=== PATIENT | female | born 1980 | race Native Hawaiian/Other Pacific Islander ===

== ENCOUNTER → 2016-04-21 | Outpatient (CLI) | payer MEDICAID, OTHER ==
--- NOTE | 2016-04-21 15:48 | WOMENS IMAGING REPORT ---
EXAM DESCRIPTION: BILAT DIAGNOSTIC MAMMO W/CAD; U/S BREAST UNILATERAL, COMPL COMPLETED DATE/TIME: 04/21/2016 12:15 pm; 04/21/2016 1:37 pm REASON FOR STUDY: N64.4 BILATERAL BREAST PAIN; LT BREAST PAIN,N64.4 N64.4 MASTODYNIA COMPARISON: Outside films are not available for comparison TECHNIQUE: Standard craniocaudal and mediolateral oblique views of each breast recorded using digita l acquisition. Additional left breast 90 mediolateral view. Because of a history of left breast pain, ultrasound w as also performed. LIMITATIONS: None. FINDINGS: RIGHT BREAST MASSES: No suspicious masses. CALCIFICATIONS: No new or suspicious calcifications. ARCHITECTURAL DISTORTION: None. DEVELOPING DENSITY: None. ASYMMETRY: None noted. OTHER: No other significant findings. LEFT BREAST MASSES: No suspicious masses. CALCIFICATIONS: No new or suspicious calcifications. ARCHITECTURAL DISTORTION: None. DEVELOPING DENSITY: None. ASYMMETRY: None noted. OTHER: There is an ultrasound biopsy clip in the left breast 5 cm from the nipple at the 3 o'clock po sition Read with the assistance of CAD: .[facility] - R2 Cenova Version 1.3 .[facility] Imaging - R2 Cenova Version 1.3 .[facility] Imaging - R2 Cenova Version 2.4 .[facility] - R2 Cenova Version 2.4 .[facility] - R2 Emissions Inspector Version 9.2 Left breast ultrasound: Patient gives a history diffuse left breast pain, more prominent laterally. Ultrasound of the entire left breast was performed. A 10 mm well-circumscribed hypoechoic solid nodule is present with biops y clip present, likely a benign fibroadenoma. No other nodules. No cysts. No worrisome acoustic ab sorption. BREAST DENSITY: d. The breasts are extremely dense, which lowers the sensitivity of mammography. BIRAD: 2 Benign findings. RECOMMENDATION: RECOMMENDED FOLLOW UP: Clinical followup for breast pain. Otherwise, consider bilateral screening tomosynthesis in April 2016 based on patient's individual l ifetime risk factor for breast cancer (Valerie model), or beginning at age 40 SPECIFIC INTERVENTION/IMAGING/CONSULTATION RECOMMENDED:No additional intervention/ imaging/consultati on needed at this time. COMMUNICATION:Patient notified by letter COMMENT: PATIENT NOTIFIED BY LETTER. The [employer] (ACR) has developed recommendations for screening MRI of the breast s in certain patient populations, to be used in conjunction with mammography. Breast MRI surveillanc e may be appropriate for women with more than 20% lifetime risk of developing breast cancer as deter mined by genetic testing, significant family history of the disease, or history of mantle radiation f or Hodgkins Disease. ACR Practice Guidelines 2008. TECHNICAL DOCUMENTATION: FINDING NUMBER: (1) ASSESSMENT: (1) JOB ID: [id number] [employer]- All Rights Reserved
--- NOTE | 2016-04-21 15:48 | WOMENS IMAGING REPORT ---
EXAM DESCRIPTION: BILAT DIAGNOSTIC MAMMO W/CAD; U/S BREAST UNILATERAL, COMPL COMPLETED DATE/TIME: 04/21/2016 12:15 pm; 04/21/2016 1:37 pm REASON FOR STUDY: N64.4 BILATERAL BREAST PAIN; LT BREAST PAIN,N64.4 N64.4 MASTODYNIA COMPARISON: Outside films are not available for comparison TECHNIQUE: Standard craniocaudal and mediolateral oblique views of each breast recorded using digita l acquisition. Additional left breast 90 mediolateral view. Because of a history of left breast pain, ultrasound w as also performed. LIMITATIONS: None. FINDINGS: RIGHT BREAST MASSES: No suspicious masses. CALCIFICATIONS: No new or suspicious calcifications. ARCHITECTURAL DISTORTION: None. DEVELOPING DENSITY: None. ASYMMETRY: None noted. OTHER: No other significant findings. LEFT BREAST MASSES: No suspicious masses. CALCIFICATIONS: No new or suspicious calcifications. ARCHITECTURAL DISTORTION: None. DEVELOPING DENSITY: None. ASYMMETRY: None noted. OTHER: There is an ultrasound biopsy clip in the left breast 5 cm from the nipple at the 3 o'clock po sition Read with the assistance of CAD: .[facility] - R2 Cenova Version 1.3 .[facility] Imaging - R2 Cenova Version 1.3 .[facility] Imaging - R2 Cenova Version 2.4 .[facility] [place] R2 Cenova Version 2.4 .[facility] - R2 Scaler Packer Version 9.2 Left breast ultrasound: Patient gives a history diffuse left breast pain, more prominent laterally. Ultrasound of the entire left breast was performed. A 10 mm well-circumscribed hypoechoic solid nodule is present with biops y clip present, likely a benign fibroadenoma. No other nodules. No cysts. No worrisome acoustic ab sorption. BREAST DENSITY: d. The breasts are extremely dense, which lowers the sensitivity of mammography. BIRAD: 2 Benign findings. RECOMMENDATION: RECOMMENDED FOLLOW UP: Clinical followup for breast pain. Otherwise, consider bilateral screening tomosynthesis in April 2016 based on patient's individual l ifetime risk factor for breast cancer (Valerie model), or beginning at age 40 SPECIFIC INTERVENTION/IMAGING/CONSULTATION RECOMMENDED:No additional intervention/ imaging/consultati on needed at this time. COMMUNICATION:Patient notified by letter COMMENT: PATIENT NOTIFIED BY LETTER. The [employer] (ACR) has developed recommendations for screening MRI of the breast s in certain patient populations, to be used in conjunction with mammography. Breast MRI surveillanc e may be appropriate for women with more than 20% lifetime risk of developing breast cancer as deter mined by genetic testing, significant family history of the disease, or history of mantle radiation f or Hodgkins Disease. ACR Practice Guidelines 2008. TECHNICAL DOCUMENTATION: FINDING NUMBER: (1) ASSESSMENT: (1) JOB ID: [id number] [employer]- All Rights Reserved
== END ==
LOC: WI 12:28
PROVIDERS: ATTEND Physician Assistant
DX: N64.4 Mastodynia (principal); N63 Unspecified lump in breast
CPT/HCPCS: 76641; G0204; 77066

== ENCOUNTER 2016-05-25 20:37 | Emergency (ER) | payer MEDICAID ==
[2016-05-25] MEDS ORDERED: PROMETHAZINE HCL 25 MG TABLET PO ONE (21:49)
[2016-05-25] MEDS ORDERED: NORMAL SALINE 1000 ML 1,000 ML IV ONE (21:49)
--- NOTE | 2016-05-25 21:52 | ER Document Report ---
ED Medical Screen (RME) - General Stated Complaint: VOMITING Notes: Patient is a 35-year-old female that comes emergency department for chief complaint of nausea, vomiting, chills, states she vomited about 15 times today, states she went to urgent care and they gave her Zofran, states she has vomiting despite taking Zofran. Denies alcohol, has had a cholecystectomy, LMP about 2 weeks ago. TRAVEL OUTSIDE OF THE [place] IN LAST 30 DAYS: No Past Medical History - Social History Frequency of alcohol use: None Drug Abuse: None Renal/ Medical History: Denies: Hx Peritoneal Dialysis Physical Exam - Vital signs Vitals: Temp Pulse Resp BP Pulse Ox 99.3 F 114 H 14 117/78 95 05/25/16 21:34 05/25/16 21:34 05/25/16 21:34 05/25/16 21:34 05/25/16 21:34 - Abdominal Tenderness: Tender - epigastric tenderness Course - Vital Signs Vital signs: Temp Pulse Resp BP Pulse Ox 99.3 F 114 H 14 117/78 95 05/25/16 21:34 05/25/16 21:34 05/25/16 21:34 05/25/16 21:34 05/25/16 21:34
[2016-05-25 23:33] LABS: HEMATOCRIT 42.6 % (36.0-47.0); HEMOGLOBIN 14.5 g/dL (12.0-15.5); HGB HCT DIFFERENCE 0.9; MEAN CORPUSCULAR HEMOGLOBIN 28.9 pg (27.0-33.4); MEAN CORPUSCULAR HGB CONC 33.9 g/dL (32.0-36.0); MEAN CORPUSCULAR VOLUME 85 fl (80-97); RED CELL DISTRIBUTION WIDTH 13.2 % (11.5-14.0); WHITE BLOOD COUNT 14.7 10^3/uL (4.0-10.5)
[2016-05-25 23:51] LABS: ALANINE AMINOTRANSFERASE 34 U/L (9-52); ALBUMIN 4.7 g/dL (3.5-5.0); ALKALINE PHOSPHATASE 69 U/L (38-126); ANION GAP 14 (5-19); ASPARTATE AMINO TRANSFERASE 25 U/L (14-36); BILIRUBIN,TOTAL 0.9 mg/dL (0.2-1.3); BLOOD UREA NITROGEN 25 mg/dL (7-20); CALCIUM 9.4 mg/dL (8.4-10.2); CARBON DIOXIDE 26 mmol/L (22-30); CHLORIDE 100 mmol/L (98-107); CREATININE RESULT 0.71 mg/dL (0.52-1.25); GLUCOSE 120 mg/dL (75-110); LIPASE 56.1 U/L (23-300); POTASSIUM 3.9 mmol/L (3.6-5.0); SODIUM 140.1 mmol/L (137-145); TOTAL PROTEIN 7.8 g/dL (6.3-8.2)
[2016-05-25 23:53] LABS: APPEARANCE,URINE CLOUDY; BILIRUBIN,URINE NEGATIVE (NEGATIVE); GLUCOSE, URINE NEGATIVE (NEGATIVE); KETONES,URINE 80 mg/dL (NEGATIVE); LEUKOCYTE ESTERASE,URINE NEGATIVE (NEGATIVE); NITRITE,URINE NEGATIVE (NEGATIVE); PROTEIN,URINE 30 mg/dL (NEGATIVE); URINE SPECIFIC GRAVITY 1.036
[2016-05-25 23:56] LABS: BAND NEUTROPHILS % (MANUAL) 3 % (3-5); BASOPHILS % (MANUAL) 0 % (0-2); EOSINOPHILS % (MANUAL) 0 % (0-6); LYMPHOCYTES % (MANUAL) 4 % (13-45); TOTAL CELLS COUNTED 100
[2016-05-25 23:57] LABS: OVALOCYTES SLIGHT; POIKILOCYTOSIS SLIGHT; TOXIC GRANULATION SLIGHT
--- NOTE | 2016-05-26 00:59 | ER Document Report ---
ED GI/ - General Mode of Arrival: Ambulatory Information source: Patient TRAVEL OUTSIDE OF THE [place] IN LAST 30 DAYS: No - HPI Patient complains to provider of: Abdominal pain, Vomiting Onset: This afternoon Quality of pain: Cramping Associated symptoms: None <GIORGI LOW - Last Filed: 05/26/16 03:55> <RU ALMEIDA - Last Filed: 05/26/16 06:20> - General Chief Complaint: Nausea/Vomiting Stated Complaint: VOMITING Notes: Patient is a 35-year-old female that presents to the emergency department today with complaints of abdominal pain with vomiting which began today prior to arrival. Patient states she feels much better now after receiving treatment in triage and she no longer has nausea or abdominal pain. Patient denies any diarrhea, cough, or congestion. (GIORGI LOW) Past Medical History - General Information source: Patient - Social History Smoking Status: Never Smoker Cigarette use (# per day): No Frequency of alcohol use: None Drug Abuse: None Lives with: Family Family History: Reviewed & Not Pertinent Patient has suicidal ideation: No Patient has homicidal ideation: No - Medical History Medical History: Negative Past Surgical History: Reports: Hx Cholecystectomy <GIORGI LOW - Last Filed: 05/26/16 03:55> Review of Systems - Review of Systems Constitutional: No symptoms reported EENT: denies: Nose congestion Cardiovascular: No symptoms reported Respiratory: denies: Cough Gastrointestinal: See HPI, Vomiting. denies: Abdominal pain, Diarrhea Genitourinary: No symptoms reported Female Genitourinary: No symptoms reported Musculoskeletal: No symptoms reported Skin: No symptoms reported Hematologic/Lymphatic: No symptoms reported Neurological/Psychological: No symptoms reported -: Yes All other systems reviewed and negative <GIORGI LOW - Last Filed: 05/26/16 03:55> Physical Exam <GIORGI LOW - Last Filed: 05/26/16 03:55> <RU ALMEIDA - Last Filed: 05/26/16 06:20> - Vital signs Vitals: Temp Pulse BP Pulse Ox 98.8 F 109 H 112/72 100 05/25/16 21:31 05/25/16 21:31 05/25/16 21:31 05/25/16 21:31 (GIORGI LOW) (RU ALMEIDA) - Notes Notes: Physical Exam: General: Alert, appears well. HEENT: Normocephalic. Atraumatic. PERRL. Extraocular movements intact. Oropharynx clear. Neck: Supple. Non-tender. Respiratory: No respiratory distress. Clear and equal breath sounds bilaterally. Cardiovascular: Regular rate and rhythm. Abdominal: Mild epigastric tenderness with palpation. No distension. Normal Bowel Sounds. Back: Non-tender. No deformity or step off. Extremities: Moves all four extremities. Upper extremities: Normal inspection. Normal ROM. Lower extremities: Normal inspection. No edema. Normal ROM. Neurological:Normal cognition. AAOx4. Normal speech. Psychological: Normal affect. Normal Mood. Skin: Warm. Dry. Normal color. (GIORGI LOW) Course - Laboratory Result Diagrams: 05/25/16 23:15 05/25/16 23:15 <GIORGI LOW - Last Filed: 05/26/16 03:55> - Laboratory Result Diagrams: 05/25/16 23:15 05/25/16 23:15 <RU ALMEIDA - Last Filed: 05/26/16 06:20> - Re-evaluation Re-evalutation: 05/26/16 Patient improved after fluids and medication. Able to take by mouth. No abdominal pain or tenderness. Feels better like to go home. Return if any worsening or concerning symptoms. (RU ALMEIDA) - Vital Signs Vital signs: Temp Pulse Resp BP Pulse Ox 99.1 F 102 H 18 111/68 100 05/26/16 01:53 05/26/16 01:53 05/26/16 01:53 05/26/16 01:53 05/26/16 01:53 (GIORGI LOW) (RU ALMEIDA) - Laboratory Laboratory results interpreted by ms: 05/25/16 05/25/16 05/25/16 23:13 23:15 23:15 WBC 14.7 H Seg Neuts % (Manual) 91 H Lymphocytes % (Manual) 4 L Monocytes % (Manual) 2 L Abs Neuts (Manual) 13.8 H BUN 25 H Glucose 120 H Urine Protein 30 H Urine Ketones 80 H Urine Urobilinogen 4.0 H (GIORGI LOW) (RU ALMEIDA) Discharge <GIORGI LOW - Last Filed: 05/26/16 03:55> <RU ALMEIDA - Last Filed: 05/26/16 06:20> - Discharge Clinical Impression: Dehydration Vomiting Qualifiers: Vomiting type: unspecified Vomiting Intractability: unspecified Nausea presence : with nausea Qualified Code(s): R11.2 - Nausea with vomiting, unspecified Condition: Stable Disposition: HOME, SELF-CARE Instructions: Vomiting ([facility]), Dehydration ([facility]) Forms: Return to Work Referrals: NIKOLAI LUNA DO [Primary Care Provider] - Follow up as needed Scribe Attestation: 05/26/16 06:20 I personally performed the services described in the documentation, reviewed and edited the documentation which was dictated to the scribe in my presence, and it accurately records my words and actions. (RU ALMEIDA) Scribe Documentation - Scribe Written by Nyla:: Nlya Srivastava, [id number] 05/26/2016 acting as scribe for :: Javi <GIORGI LOW - Last Filed: 05/26/16 03:55>
[2016-05-26] MEDS ORDERED: ONDANSETRON ODT 4 MG TAB (6 TAB/DSPK) PO PRN (01:00)
[2016-05-26 01:54] VITALS: BP 111/68
== END 2016-05-26 01:54 | disposition home or self-care (01) ==
LOC: ER 20:37
DX: R11.2 Nausea with vomiting, unspecified (principal); E86.0 Dehydration; R10.9 Unspecified abdominal pain; R10.816 Epigastric abdominal tenderness; Z90.49 Acquired absence of other specified parts of digestive tract
CPT/HCPCS: 99284; 36415; 83690; 85025; 81025; 80053; 81001; 87804; J3490; J7030

== ENCOUNTER 2016-11-13 21:10 | Emergency (ER) | payer BC, MEDICAID ==
--- NOTE | 2016-11-13 22:51 | ER Document Report ---
ED GI/ - General Mode of Arrival: Ambulatory Information source: Patient TRAVEL OUTSIDE OF THE [place] IN LAST 30 DAYS: No - HPI Patient complains to provider of: Abdominal pain, Flank pain Onset: Just prior to arrival - at work @ 1900 <GIORGI LOW - Last Filed: 11/14/16 00:31> <LANEY PENN - Last Filed: 11/14/16 02:50> - General Chief Complaint: Flank Pain Stated Complaint: BACK PAIN/VOMITING Time Seen by Provider: 11/13/16 22:42 Notes: Patient is a 35 year old female that presents to the emergency department today with complaints of left flank pain and mild abdominal pain. Patient states that her pain began today while at work. Patient states she had a normal bowel movement today. Patient denies any fevers. (GIORGI LOW) - Related Data Allergies/Adverse Reactions: No Known Allergies Allergy (Unverified 11/13/16 21:46) Past Medical History - General Information source: Patient, [facility] Records - Social History Smoking Status: Never Smoker Chew tobacco use (# tins/day): No Frequency of alcohol use: None Drug Abuse: None Occupation: [employer] Lives with: Family Family History: Reviewed & Not Pertinent Patient has suicidal ideation: No Patient has homicidal ideation: No - Medical History Medical History: Negative Past Surgical History: Reports: Hx Cholecystectomy <GIORGI LOW - Last Filed: 11/14/16 00:31> Review of Systems - Review of Systems Constitutional: denies: Fever EENT: No symptoms reported Cardiovascular: No symptoms reported Respiratory: No symptoms reported Gastrointestinal: See HPI, Abdominal pain Genitourinary: See HPI, Flank pain Female Genitourinary: See HPI, Last menstrual period - October 29 Musculoskeletal: No symptoms reported Skin: No symptoms reported Hematologic/Lymphatic: No symptoms reported Neurological/Psychological: No symptoms reported -: Yes All other systems reviewed and negative <GIORGI LOW - Last Filed: 11/14/16 00:31> Physical Exam <GIORGI LOW - Last Filed: 11/14/16 00:31> <LANEY PENN - Last Filed: 11/14/16 02:50> - Vital signs Vitals: Temp Pulse Resp BP Pulse Ox 98.6 F 89 12 122/77 100 11/13/16 21:45 11/13/16 21:45 11/13/16 21:45 11/13/16 21:45 11/13/16 21:45 - Notes Notes: Physical Exam: General: Alert, appears well. HEENT: Normocephalic. Atraumatic. PERRL. Extraocular movements intact. Oropharynx clear. Neck: Supple. Non-tender. Respiratory: No respiratory distress. Clear and equal breath sounds bilaterally. Cardiovascular: Regular rate and rhythm. Abdominal: No lower abdominal tenderness with palpation, mild epigastric tenderness with palpation. No distension. Normal Bowel Sounds. Back: Left flank tenderness with palpation which appears to be muscular in nature. No deformity or step off. Extremities: Moves all four extremities. Upper extremities: Normal inspection. Normal ROM. Lower extremities: Normal inspection. No edema. Normal ROM. Neurological: Normal cognition. AAOx4. Normal speech. Psychological: Normal affect. Normal Mood. Skin: Warm. Dry. Normal color. No rash or blisters appreciated. (GIORGI LOW) Course - Laboratory Result Diagrams: 11/13/16 23:05 11/13/16 23:05 <GIORGI LOW - Last Filed: 11/14/16 00:31> - Laboratory Result Diagrams: 11/13/16 23:05 11/13/16 23:05 - Diagnostic Test Radiology reviewed: Image reviewed, Reports reviewed - CT scan shows a 3 mm left UVJ stone with mild left hydronephrosis hydroureter and perinephric stranding. <LANEY PENN - Last Filed: 11/14/16 02:50> - Vital Signs Vital signs: Temp Pulse Resp BP Pulse Ox 98.6 F 89 12 122/77 100 11/13/16 21:45 11/13/16 21:45 11/13/16 21:45 11/13/16 21:45 11/13/16 21:45 - Laboratory Laboratory results interpreted by me: 11/13/16 11/13/16 11/14/16 23:05 23:05 00:45 WBC 16.8 H Seg Neuts % (Manual) 96 H Lymphocytes % (Manual) 2 L Monocytes % (Manual) 2 L Abs Neuts (Manual) 16.1 H Abs Lymphs (Manual) 0.3 L BUN 21 H Glucose 146 H Urine Ketones 20 H Ur Leukocyte Esterase TRACE H Discharge <GIORGI LOW - Last Filed: 11/14/16 00:31> <LANEY PENN - Last Filed: 11/14/16 02:50> - Discharge Clinical Impression: Left ureteral stone Condition: Stable Disposition: HOME, SELF-CARE Additional Instructions: Kidney Stone: You are passing or have passed a kidney stone. These stones are usually due to increased calcium or uric acid concentrations in your urine. Stones within the kidney itself are not painful. The pain occurs as the stone leaves the kidney to pass down the long tube, called the ureter, leading to the bladder. If the stone is small, it will usually pass by itself. Most patients can pass the stone at home. You will usually receive medications for pain, nausea or vomiting, and sometimes a medication to assist in passing the kidney stone. However, if the pain is very severe or if vomiting prevents you from taking oral pain medications, you may need to return for further treatment. Drink three or four quarts of fluids per day. You will be given pain medication (if needed) and urine strainers. Strain all your urine to see if the stone passes. If your doctor has asked you to bring the stone in for analysis, return with the stone once it has passed. Return if pain or vomiting become severe, if you develop a high fever, if you are unable to pass your urine, or if other unusual symptoms occur. TAKE THE PAIN MEDICATION NEEDED. DRINK PLENTY OF FLUIDS. STRAIN YOUR URINE. FOLLOW UP WITH YOUR DOCTOR IF NOT IMPROVING. RETURN TO THE EMERGENCY ROOM IF ANY NEW OR WORSENING SYMPTOMS. Prescriptions: Oxycodone HCl/Acetaminophen [Percocet 5-325 mg Tablet] 1 - 2 tab PO ASDIR PRN # 15 tablet PRN Reason: Forms: Return to Work Referrals: SUSAN BENITES MD [Primary Care Provider] - Follow up as needed Scribe Documentation - Scribe Written by Rainaibe:: Nyla Srivastava, 11/14/2016 [id number] acting as scribe for :: Rita <GIORGI LOW - Last Filed: 11/14/16 00:31>
[2016-11-13] MEDS ORDERED: MORPHINE SULFATE 10 MG/ML INJ IV ONE (23:10)
[2016-11-13] MEDS ORDERED: ONDANSETRON HCL INJ/PF 4 MG/2 ML SDV IV ONE (23:10)
[2016-11-13] MEDS ORDERED: NORMAL SALINE 1000 ML 1,000 ML IV ONE (23:10)
[2016-11-13 23:19] LABS: HEMATOCRIT 39.6 % (36.0-47.0); HEMOGLOBIN 13.4 g/dL (12.0-15.5); HGB HCT DIFFERENCE 0.6; MEAN CORPUSCULAR HEMOGLOBIN 29.1 pg (27.0-33.4); MEAN CORPUSCULAR HGB CONC 33.9 g/dL (32.0-36.0); MEAN CORPUSCULAR VOLUME 86 fl (80-97); RED CELL DISTRIBUTION WIDTH 13.5 % (11.5-14.0); WHITE BLOOD COUNT 16.8 10^3/uL (4.0-10.5)
[2016-11-13 23:48] LABS: BASOPHILS % (MANUAL) 0 % (0-2); EOSINOPHILS % (MANUAL) 0 % (0-6); LYMPHOCYTES % (MANUAL) 2 % (13-45); TOTAL CELLS COUNTED 100
[2016-11-13 23:49] LABS: ALANINE AMINOTRANSFERASE 22 U/L (9-52); ALBUMIN 4.6 g/dL (3.5-5.0); ALKALINE PHOSPHATASE 65 U/L (38-126); ANION GAP 14 (5-19); ASPARTATE AMINO TRANSFERASE 21 U/L (14-36); BILIRUBIN,DIRECT 0.2 mg/dL (0.0-0.4); BILIRUBIN,TOTAL 0.6 mg/dL (0.2-1.3); BLOOD UREA NITROGEN 21 mg/dL (7-20); CALCIUM 9.6 mg/dL (8.4-10.2); CARBON DIOXIDE 23 mmol/L (22-30); CHLORIDE 103 mmol/L (98-107); CREATININE RESULT 0.79 mg/dL (0.52-1.25); GLUCOSE 146 mg/dL (75-110); LIPASE 137.7 U/L (23-300); POTASSIUM 3.8 mmol/L (3.6-5.0); SODIUM 139.5 mmol/L (137-145); TOTAL PROTEIN 7.7 g/dL (6.3-8.2)
[2016-11-13 23:54] LABS: BURR CELLS SLIGHT; OVALOCYTES SLIGHT; POIKILOCYTOSIS SLIGHT; TOXIC GRANULATION 1+
[2016-11-14] MEDS ORDERED: RINGERS SOLUTION,LACTATED 1,000 ML IV ONE (00:29)
[2016-11-14 01:10] LABS: APPEARANCE,URINE SLIGHTLY-CLOUDY; BILIRUBIN,URINE NEGATIVE (NEGATIVE); GLUCOSE, URINE NEGATIVE (NEGATIVE); KETONES,URINE 20 mg/dL (NEGATIVE); LEUKOCYTE ESTERASE,URINE TRACE (NEGATIVE); NITRITE,URINE NEGATIVE (NEGATIVE); PROTEIN,URINE NEGATIVE (NEGATIVE); URINE SPECIFIC GRAVITY 1.028; UROBILINOGEN,URINE NEGATIVE mg/dL (<2.0)
--- NOTE | 2016-11-14 02:19 | RADIOLOGY REPORT (SQ) ---
EXAM DESCRIPTION: CT LTD RENAL STONE PROTOCOL ON COMPLETED DATE/TIME: 11/14/2016 1:54 am REASON FOR STUDY: L flank pain, leukocytosis COMPARISON: None. TECHNIQUE: CT scan of the abdomen and pelvis performed without intravenous or oral contrast. Images reviewed with lung, soft tissue, and bone windows. Reconstructed coronal and sagittal MPR images revi ewed. All images stored on PACS. All CT scanners at this facility use dose modulation, iterative reconstruction, and/or weight based d osing when appropriate to reduce radiation dose to as low as reasonably achievable (ALARA). [facility]: Dose Right [facility]: CareDose [facility]: Dose Right [facility]: Teradose 4D [facility]: Smart Avista RADIATION DOSE: Up-to-date CT equipment and radiation dose reduction techniques were employed. CTDIv ol: 5.1 mGy. DLP: 244 mGy-cm.mGy. LIMITATIONS: None. FINDINGS: LOWER CHEST: No consolidation or pleural effusion. NON-CONTRASTED LIVER, SPLEEN, ADRENALS: Evaluation limited by lack of IV contrast. No identified sign ificant masses. PANCREAS: No peripancreatic inflammatory changes. GALLBLADDER: Surgically absent. RIGHT KIDNEY AND URETER: Assessment for masses limited by lack of IV contrast. No significant calci fications. No hydronephrosis or hydroureter. LEFT KIDNEY AND URETER: Assessment for masses limited by lack of IV contrast. There is left-sided p erinephric stranding. There is mild hydronephrosis and there is dilation of the left ureter. AORTA AND RETROPERITONEUM: No thoracic aortic aneurysm. No retroperitoneal masses or adenopathy. BOWEL AND PERITONEAL CAVITY: No dilated bowel loops or inflammatory changes. No free fluid. APPENDIX: Normal. PELVIS, BLADDER, AND ABDOMINAL WALL:There is a 3 mm calculus in the urinary bladder adjacent to the l eft ureterovesical junction. The uterus is present. Trace free fluid. There is a small fat contain ing umbilical hernia. BONES: No acute findings. IMPRESSION: 3 mm calculus in the urinary bladder adjacent to the left UVJ with left perinephric stra nding and mild left hydroureteronephrosis. Trace free pelvic fluid. TECHNICAL DOCUMENTATION: JOB ID: [id number] [place]- Quality ID # [id number]: Final reports with documentation of one or more dose reduction techniques (e.g., Au tomated exposure control, adjustment of the mA and/or kV according to patient size, use of iterative reconstruction technique) 2010 [employer]- All Rights Reserved
[2016-11-14] MEDS ORDERED: KETOROLAC TROMETHAMINE INJ/PF 30 MG/1 ML SDV IV ONE (02:40)
[2016-11-14] MEDS ORDERED: HYDROCODONE/ACETAMINOPHEN 5-325 MG 6 TAB/DSPK PO PRN (02:40)
[2016-11-14 03:18] VITALS: BP 129/84
== END 2016-11-14 03:17 | disposition home or self-care (01) ==
LOC: ER 21:10
DX: N13.2 Hydronephrosis with renal and ureteral calculous obstruction (principal)
CPT/HCPCS: 99284; 96361; 96375; 96365; 36415; 87086; 83690; 85025; 81025; 80053; 81001; 76380; J1885; J2270; J2405; J7030; J7120

== ENCOUNTER → 2017-05-06 | Outpatient (CLI) | payer BC ==
--- NOTE | 2017-05-06 10:40 | WOMENS IMAGING REPORT ---
EXAM DESCRIPTION: 3D SCREENING MAMMO BILAT COMPLETED DATE/TIME: 05/06/2017 10:18 am REASON FOR STUDY: ROUTINE SCREENING; Z12.31 Z12.31 ENCNTR SCREEN MAMMOGRAM FOR MALIGNANT NEOPLASM O F PABLO COMPARISON: 04/21/2016. TECHNIQUE: Standard craniocaudal and mediolateral oblique views of each breast recorded using digita l acquisition and breast tomosynthesis. LIMITATIONS: None. FINDINGS: No masses, calcifications or architectural distortion. No areas of suspicion. Read with the assistance of CAD. .[facility] - R2 Cenova Version 1.3 .[facility] Imaging - R2 Cenova Version 1.3 .[facility] Imaging - R2 Cenova Version 2.4 .[facility] [place] - R2 Cenova Version 2.4 .[facility] - R2 Meter Tester Polyphase Version 9.2 IMPRESSION: NORMAL MAMMOGRAM. BIRADS 1. BREAST DENSITY: d. The breasts are extremely dense, which lowers the sensitivity of mammography. BIRAD: 1 NEGATIVE RECOMMENDATION: ROUTINE SCREENING COMMENT: The patient has been notified of the results by letter per MQSA requirements. Additional no tification policies are in place for contacting patient with suspicious or incomplete findings. Quality ID #[id number]: The [employer] [place] [employer] recommends an annual screening mammogram for women aged 40 years or over. This facility utilizes a reminder system to ensure that all patients receive reminder letters, and/or direct phone calls for appointments. This includes reminders for routine scr eening mammograms, diagnostic mammograms, or other Breast Imaging Interventions when appropriate. Th is patient will be placed in the appropriate reminder system. The [place] [employer] (ACR) has developed recommendations for screening MRI of the breast s in certain patient populations, to be used in conjunction with mammography. Breast MRI surveillanc e may be appropriate for women with more than 20% lifetime risk of developing breast cancer as deter mined by genetic testing, significant family history of the disease, or history of mantle radiation f or Hodgkins Disease. ACR Practice Guidelines 2008. DBT Technology DBT is a type of tomographic mammography. With conventional mammography, overlapping breast tissue ma y make lesions difficult to detect, even with good compression. DBT uses an x-ray tube that rotates a round the breast, taking images at different angles. These images are then combined to create thin sl ices of the breast that the radiologist can view as a 3D reconstruction. The [employer] unit can perform full-field digital mammograms (2D imaging); or DBT (3D imaging); or both, in a combination mode that quickly performs both the mammogram and the tomosynthesis scan while the breast is still compressed. PQRS 6045F: Fluoroscopic imaging is not utilized for breast tomosynthesis. TECHNICAL DOCUMENTATION: FINDING NUMBER: (1) ASSESSMENT: (1) JOB ID: [id number] [employer]- All Rights Reserved
== END ==
LOC: WI 09:48
PROVIDERS: ATTEND Physician Assistant
DX: Z12.31 Encounter for screening mammogram for malignant neoplasm of breast (principal); R92.2 Inconclusive mammogram
CPT/HCPCS: 77063; 77067

== ENCOUNTER → 2018-05-09 | Outpatient (CLI) | payer BC, OTHER ==
--- NOTE | 2018-05-09 16:33 | WOMENS IMAGING REPORT ---
EXAM DESCRIPTION: BILAT SCREENING MAMMO W/CAD COMPLETED DATE/TIME: 05/09/2018 3:59 pm REASON FOR STUDY: ROUTINE BILATERAL SCREENING,Z12.31 Z12.31 ENCNTR SCREEN MAMMOGRAM FOR MALIGNANT N EOPLASM OF PABLO COMPARISON: 2016, 2017 TECHNIQUE: Standard craniocaudal and mediolateral oblique views of each breast recorded using Nagia l acquisition. LIMITATIONS: None. FINDINGS: No masses, calcifications or architectural distortion. No areas of suspicion. Read with the assistance of CAD. .[facility] - R2 Cenova Version 1.3 .[facility] Imaging - R2 Cenova Version 2.1 .[facility] Imaging - R2 Cenova Version 2.4 .[facility] [place] - R2 Cenova Version 2.4 .[facility] - R2 [employer] Manager Version 9.2 IMPRESSION: NORMAL MAMMOGRAM. BIRADS 1. BREAST DENSITY: c. The breasts are heterogeneously dense, which may obscure small masses. BIRAD: 1 NEGATIVE RECOMMENDATION: ROUTINE SCREENING COMMENT: The patient has been notified of the results by letter per SA requirements. Additional no tification policies are in place for contacting patient with suspicious or incomplete findings. Quality ID #[id number]: The [employer] recommends an annual screening mammogram for women aged 40 years or over. This facility utilizes a reminder system to ensure that all patients receive reminder letters, and/or direct phone calls for appointments. This includes reminders for routine scr eening mammograms, diagnostic mammograms, or other Breast Imaging Interventions when appropriate. Th is patient will be placed in the appropriate reminder system. The [employer] ([employer]) has developed recommendations for screening MRI of the breast s in certain patient populations, to be used in conjunction with mammography. Breast MRI surveillanc e may be appropriate for women with more than 20% lifetime risk of developing breast cancer as deter mined by genetic testing, significant family history of the disease, or history of mantle radiation f or Hodgkins Disease. ACR Practice Guidelines 2008. TECHNICAL DOCUMENTATION: FINDING NUMBER: (1) ASSESSMENT: (1) JOB ID: [id number] [employer]- All Rights Reserved Reading location - IP/workstation name: [email or web address]
== END ==
LOC: WI 15:30
PROVIDERS: ATTEND Nurse Practitioner Family
DX: Z12.31 Encounter for screening mammogram for malignant neoplasm of breast (principal)
CPT/HCPCS: 77067